=== PATIENT | female | born 1980 | race American Indian/Alaskan Native ===

== ENCOUNTER 2016-11-12 02:46 | Emergency (ER) | payer MEDICAID ==
[2016-11-12 03:42] VITALS: BP 159/109
[2016-11-12 04:07] LABS: Basophils % (Auto) 0.6 % (0.0-1.8); Eosinophils % (Auto) 1.6 % (0.0-4.3); Hematocrit 41.3 % (30.3-42.9); Hemoglobin 13.4 gm/dl (10.1-14.3); Mean Corpuscular HGB Conc 32 % (30-34); Mean Corpuscular Hemoglobin 27 pg (28-32); Mean Corpuscular Volume 84 fl (79-97); Platelet Count 244 K/mm3 (140-440); Red Blood Count 4.94 M/mm3 (3.65-5.03); Red Cell Distribution Width 14.3 % (13.2-15.2); White Blood Count 9.2 K/mm3 (4.5-11.0)
[2016-11-12 04:23] LABS: Anion Gap 16 mmol/L; BUN/Creatinine Ratio 12.22; Blood Urea Nitrogen 11 mg/dL (7-17); Calcium 8.8 mg/dL (8.4-10.2); Carbon Dioxide 24 mmol/L (22-30); Glucose 124 mg/dL (65-100); Potassium 4.3 mmol/L (3.6-5.0); Sodium 139 mmol/L (137-145)
[2016-11-12 05:26] LABS: Bilirubin,Urine NEG (Negative); Blood,Urine NEG (Negative); Ketones,Urine NEG (Negative); Leukocyte Esterase,Urine SM (Negative); Mucus,Urine FEW /HPF; Nitrite,Urine NEG (Negative); Protein,Urine <15 mg/dL mg/dL (Negative); Urobilinogen,Urine < 2.0 mg/dL (<2.0)
== END 2016-11-13 03:29 | disposition left against medical advice (07) ==
LOC: ED 02:46
DX: K08.89 Other specified disorders of teeth and supporting structures (principal); Z53.21 Procedure and treatment not carried out due to patient leaving prior to being seen by health care provider
CPT/HCPCS: 36415; 80048; 81001; 81025; 85025; 87086

== ENCOUNTER 2017-04-21 00:36 | Emergency (ER) | payer MEDICAID ==
[2017-04-21] MEDS ORDERED: MOTRIN PO ONE (00:55)
[2017-04-21 07:27] VITALS: BP 134/89
--- NOTE | 2017-04-21 08:16 | Emergency Department Report ---
HPI - General Chief Complaint: Upper Respiratory Infection Time Seen by Provider: 04/21/17 07:50 - HPI HPI: This is a 37 year-old female who presents to the emergency department, dropped off by a family member, with complaint of some body aches that she says are "my bones aching", throat soreness, stuffy nose and a mixture and productive cough. The patient has a history of lupus. She has a primary care physician but has not seen them regarding her symptoms. The symptoms of an going on for the past 2 days. No known aggravating or alleviating factors. She has taken Mucinex and TheraFlu for symptoms without any relief. She received some ibuprofen upon presentation here that helped temporarily. No recent travel or sick contacts at home. ED Past Medical Hx - Past Medical History Hx Hypertension: Yes Additional medical history: Lupus, - Surgical History Additional Surgical History: Tubal Ligation - Social History Smoking Status: Never Smoker Substance Use Type: None - Medications Home Medications: Home Medications Medication Instructions Recorded Confirmed Last Taken Type Ibuprofen [Motrin 800 MG tab] 800 mg PO TID PRN #21 tablet 04/21/17 Unknown Rx guaiFENesin/CODEINE [Robitussin AC] 5 ml PO Q6H PRN #100 ml 04/21/17 Unknown Rx ED Review of Systems ROS: Stated complaint: Flu like symptoms Other details as noted in HPI Comment: All other systems reviewed and negative Constitutional: fever (subjective). denies: chills, weakness Eyes: denies: eye pain, eye discharge, vision change ENT: throat pain, congestion. denies: ear pain Respiratory: cough. denies: shortness of breath Cardiovascular: denies: chest pain, palpitations Gastrointestinal: denies: abdominal pain, nausea, diarrhea Genitourinary: denies: urgency, dysuria, discharge Musculoskeletal: myalgia. denies: joint swelling Skin: denies: rash, lesions Neurological: denies: weakness, numbness Physical Exam - Physical Exam Vital Signs: Vital Signs 04/21/17 04/21/17 00:44 07:25 Temperature 99.2 F Pulse Rate 90 86 Respiratory 16 18 Rate Blood Pressure 162/82 Blood Pressure 134/89 [Right] O2 Sat by Pulse 98 98 Oximetry Physical Exam: GENERAL: The patient is well-developed well-nourished. HENT: Normocephalic. Atraumatic. Patient has moist mucous membranes. No drooling or trismus. The posterior pharynx is slightly injected but otherwise there is no tonsillar hypertrophy, erythema or exudates. EYES: Extraocular motions are intact. Pupils equal reactive to light bilaterally. NECK: Supple. Trachea is midline. CHEST/LUNGS: Clear to auscultation. A productive sounding cough heard during examination. No tachypnea or accessory muscle use. There is no respiratory distress noted. HEART/CARDIOVASCULAR: Regular. There is no tachycardia. There is no murmur. ABDOMEN: Abdomen is soft, nontender. Patient has normal bowel sounds. Obese habitus. SKIN: Skin is warm dry. NEURO: The patient is awake, alert, and oriented. The patient is cooperative. The patient has no focal neurologic deficits. The patient has normal speech. MUSCULOSKELETAL: There is no tenderness or deformity. There is no limitation range of motion. There is no evidence of acute injury. ED Course Vital Signs 04/21/17 04/21/17 00:44 07:25 Temperature 99.2 F Pulse Rate 90 86 Respiratory 16 18 Rate Blood Pressure 162/82 Blood Pressure 134/89 [Right] O2 Sat by Pulse 98 98 Oximetry ED Medical Decision Making - Radiology Data Radiology results: image reviewed interpreted by me: Chest x-ray does not show any acute process. There are no pleural effusions, obvious pneumonia and there is no pneumothorax. - Medical Decision Making Patient presents with a few days of some body aches, subjective fever, productive cough, sore throat and runny nose. Negative for influenza and strep pharyngitis. Chest x-ray does not show any pneumonia or any other acute process. I do not see any focus of infection on physical examination. Patient does not appear to require any antibiotics at this time. However she will go home with ibuprofen for her bodyaches, Robitussin-AC for her cough, and she has a appointment with her PCP coming up this . She will attempt to follow up sooner and will return to the ER with any worsening of her symptoms or any acute distress. - Differential Diagnosis influenza, URI, pneumonia, lupus Critical Care Time: No Critical care attestation.: If time is entered above; I have spent that time in minutes in the direct care of this critically ill patient, excluding procedure time. ED Disposition Clinical Impression: Viral syndrome Upper respiratory infection Qualifiers: URI type: unspecified URI Qualified Code(s): J06.9 - Acute upper respiratory infection, unspecified Pharyngitis Qualifiers: Pharyngitis/tonsillitis etiology: unspecified etiology Qualified Code(s): J02.9 - Acute pharyngitis, unspecified Disposition: DC- TO HOME OR SELFCARE Is pt being admited?: No Condition: Stable Instructions: Pharyngitis (ED), Upper Respiratory Infection (ED), Viral Syndrome (ED) Additional Instructions: Please follow-up with your primary care physician in the next few days. He can take Tylenol every 4 hours and ibuprofen every 6 hours, using weight-based dosing, as needed for fever or discomfort. Increase your oral rehydration. Return to the emergency Department with any worsening of your symptoms or any acute distress. You have been prescribed a medication that is sedating and therefore should not be taken prior to driving, working, and responsible for children and in no way should be mixed with alcohol of any quantity. Prescriptions: guaiFENesin/CODEINE [Robitussin AC] 5 ml PO Q6H PRN #100 ml PRN Reason: Cough Ibuprofen [Motrin 800 MG tab] 800 mg PO TID PRN #21 tablet PRN Reason: Pain Time of Disposition: 08:19
--- NOTE | 2017-04-21 08:17 | XRay Report ---
FINAL REPORT EXAM: XR CHEST ROUTINE 2V HISTORY: cough TECHNIQUE: PA and lateral chest radiographs PRIORS: None. FINDINGS: No mediastinal shift. Cardiac silhouette is not enlarged. No pneumothorax, effusion, or focal pulmonary opacity. No acute skeletal finding. IMPRESSION: No focal pulmonary opacity.
== END 2017-04-21 08:27 | disposition home or self-care (01) ==
LOC: ED 00:36
DX: J06.9 Acute upper respiratory infection, unspecified (principal); J02.9 Acute pharyngitis, unspecified; B34.9 Viral infection, unspecified
CPT/HCPCS: 71046; 87116; 87400; 87430